=== PATIENT | male | born 1975 | race Caucasian/White ===

== ENCOUNTER 2018-08-06 22:21 | Emergency (ER) | payer SELFPAY ==
--- NOTE | 2018-08-06 22:37 | ER Report ---
History and Physical Time Seen By MD: 22:36 Hx. of Stated Complaint: C/O INCREASING L HAND PAIN X 3 DAYS, FIRST NOTICED CUT TO DIPJ ON 4TH FINGER SATURDAY, PAIN EXTENDING DOWN FOREARM TODAY. HPI/ROS CHIEF COMPLAINT: Left hand swelling and redness HISTORY OF PRESENT ILLNESS: 43-year-old male presents ambulatory to the ER complaining of left hand swelling and pain. 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 Patient left finger swelled up for a couple of days, but then said subsequently went down. He came out from [place] to go [place] vacation. Yesterday his hand began to swell in the palmar region and then subsequently today swelled up on the back of the hand. It is grossly erythematous and warmth. He notes radiation of the pain into the midforearm. There are no red streaks up his arm. There is no axillary pain or antecubital pain. Patient denies fever or chills. Patient's been taking ibuprofen for pain relief. He was having trouble grasping the left handlebar of the snow[employer]oladebile today due to the pain and stiffness in his left hand. Allergies: Coded Allergies: No Known Drug Allergies (Unverified , 08/06/18) Home Meds Active Scripts Cephalexin Monohydrate (CEPHALEXIN) 500 Mg Cap, 500 MG PO TID for infection, #20 CAP TAKE 1 CAPSULE BY MOUTH EVERY SIX HOURS Prov:JAQUI DEE DO 08/06/18 Sulfamethoxazole/Trimet 800-160 Mg Tab (BACTRIM DS TABLET) 1 Each Tablet, 1 TAB PO Q12H for infection, #14 Prov:JAQUI DEE DO 08/06/18 Reviewed Nurses Notes: Yes Old Medical Records Reviewed: Yes Constitutional Vital Sign - Last 24 Hours 08/06/18 08/06/18 08/06/18 08/06/18 22:28 22:29 22:30 22:36 Temp 98.9 Pulse 94 94 Resp 19 B/P (MAP) 151/101 (118) 145/92 145/92 (109) Pulse Ox 93 91 O2 Delivery Room Air 08/06/18 08/06/18 08/06/18 22:51 23:00 23:06 Pulse 91 101 B/P (MAP) 144/82 (102) Pulse Ox 93 88 Physical Exam Vital signs stable, afebrile, pulse ox normal General appearance: Alert no distress. Respiratory: Chest is non tender, lungs are clear to auscultation. Cardiac: Regular rate and rhythm Extremities: Examination of the left upper extremity reveals a normal-appearing left upper extremity except for gross erythema and edema to the dorsal aspect of the hand extending to the wrist. The fingers appear normal. All digits are neurovascularly intact. There is some palmar erythema and swelling. There is some mild tenderness on palpation of the proximal forearm, both volar and dorsal surface. DIFFERENTIAL DIAGNOSIS: After history and physical exam differential diagnosis was considered for cellulitis, tenosynovitis, gout, puncture wound, retained foreign body Medical Decision Making ED Course/Re-evaluation ED Course Patient was admitted to an examination room. H&P was done. The differential diagnoses was considered. On conical examination. Patient has a grossly swollen left hand consistent with cellulitis. It is erythematous and warm. All digits are neurovascularly intact. Palpation and movement of the digits reveal some increased pain but no suggestion of acute tenosynovitis. Patient be covered with Keflex and Bactrim DS for 1 week. He is discharged with a Lortab prepack of 2 tablets for temporary pain relief tonight. He's advised to go to the nearest ER if he is unimproved in 2 days, to return to here if he is worse tomorrow. Decision to Disposition Date: Aug 06, 2018 Decision to Disposition Time: 22:42 Depart Departure Latest Vital Signs Vital Signs Date Time Temp Pulse Resp B/P (MAP) Pulse Ox O2 Delivery O2 Flow Rate FiO2 08/06/18 23:06 101 88 08/06/18 23:00 144/82 (102) 08/06/18 22:29 98.9 19 Room Air Impression: Primary Impression: Cellulitis of left hand Condition: Improved Disposition: HOME OR SELF-CARE New Scripts Cephalexin Monohydrate (CEPHALEXIN) 500 Mg Cap 500 MG PO TID for infection, #20 CAP TAKE 1 CAPSULE BY MOUTH EVERY SIX HOURS Prov: JAQUI DEE DO 08/06/18 Sulfamethoxazole/Trimet 800-160 Mg Tab (BACTRIM DS TABLET) 1 Each Tablet 1 TAB PO Q12H for infection, #14 Prov: JAQUI DEE DO 08/06/18 Patient Instructions: Cellulitis (ED) Additional Instructions: Take ibuprofen 200 mg 3-4 tablets 3 times a day for inflammatory pain relief Apply warm soaks to your left hand Follow-up with primary care if unimproved in 3-5 days Go to the nearest ER for any worsening JAQUI DEE DO Aug 06, 2018 22:36
[2018-08-06] MEDS ORDERED: SULF-198 PO (22:43)
[2018-08-06] MEDS ORDERED: CEPH500C24 PO (22:43)
[2018-08-06] MEDS ORDERED: ACET/HYDROC 5/325MG TH ER ONLY 2 TAB/BOTTLE PO ONE (22:45)
[2018-08-06] MEDS ORDERED: TRIMETH/SULFA DS 160-800MG TAB PO ONE (22:45)
[2018-08-06] MEDS ORDERED: CEPHALEXIN MONO 500 MG CAP PO ONE (22:45)
[2018-08-06] MEDS ORDERED: TRIMETHOPRIM/SULFA 160-800 TH 2 TAB/BOTTLE PO ONE (22:45)
[2018-08-06] MEDS ORDERED: CEPHALEXIN 500 MG CAP TH 2 CAP/BOTTLE PO ONE (22:45)
[2018-08-06 23:00] VITALS: BP 144/82
== END 2018-08-06 23:22 | disposition home or self-care (01) ==
LOC: ER 22:49
DX: L03.114 Cellulitis of left upper limb (principal)
CPT/HCPCS: 99283